=== PATIENT | female | born 1990 | race Caucasian/White ===

== ENCOUNTER 2018-08-30 14:53 | Emergency (ER) | payer MEDICAID ==
[~2018-08-30] VITALS: Ht 170.2 cm; Wt 68.2 kg
[2018-08-30 15:09] VITALS: Ht 170.2 cm; Wt 68.2 kg
[2018-08-30 17:14] LABS: BASOPHIL % 0.3 % (0-2)
[2018-08-30 17:22] LABS: PLATELET COUNT 414 x10^3mcL (130-400); RED CELL DISTRIBUTION WIDTH 17.3 % (11.5-14.5)
[2018-08-30 17:24] LABS: CALCIUM 9.1 mg/dL (8.5-10.1); CARBON DIOXIDE 26.4 mmol/L (21-32); CHLORIDE SERUM 104 mmol/L (98-107); CREATININE SERUM 0.6 mg/dL (0.6-1.0); GFR1 > 60 mL/min; GLUCOSE SERUM 105 mg/dL (74-106); POTASSIUM SERUM 3.7 mmol/L (3.5-5.1); SODIUM SERUM 141 mmol/L (136-145)
[2018-08-30 17:31] LABS: ALKALINE PHOSPHATASE 78 U/L (46-116); ALT/SGPT 26 U/L (14-59); AST/SGOT 12 U/L (15-37); BILIRUBIN TOTAL 0.3 mg/dL (0.20-1.00)
[2018-08-30 17:33] LABS: C REACTIVE PROTEIN < 0.2 mg/dL (<=0.9)
[2018-08-30 18:42] LABS: ERYTHROCYTE SED RATE 17 mm/hr (0-20)
[2018-08-30 18:49] VITALS: BP 108/68
== END 2018-08-30 18:49 | disposition home or self-care (01) ==
LOC: ED 14:53
PROVIDERS: Emergency Medicine
DX: B00.89 Other herpesviral infection (principal)
CPT/HCPCS: 36415